=== PATIENT | male | born 2000 | race Hispanic/Latino ===

== ENCOUNTER 2022-04-02 08:29 | Day surgery (SDC) | payer OTHER ==
[2022-03-31 12:07] LABS: BASOPHILS % (AUTO) 0.4 % (0.0-5.0); EOSINOPHILS % (AUTO) 1.4 % (0.0-8.0); HEMATOCRIT 44.3 % (42-54); LYMPHOCYTES % (AUTO) 31.4 % (21.0-51.0); MEAN CORPUSCULAR HEMOGLOBIN 32.4 pg (27.0-33.0); MEAN CORPUSCULAR HGB CONC 35.2 g/dL (32.0-36.0); MEAN CORPUSCULAR VOLUME 92.1 fL (79-99); MONOCYTES % (AUTO) 9.6 % (3.0-13.0); NEUTROPHILS % (AUTO) 56.6 % (40.0-77.0); PLATELET COUNT (AUTO) 299 K/uL (130-400); RED BLOOD CELL COUNT(AUTO) 4.81 MIL/uL (4.50-6.20); RED CELL DISTRIBUTION WIDTH 12.6 % (11.0-15.5)
[2022-03-31 12:29] LABS: CREATININE 0.9 mg/dL (0.5-1.5); POTASSIUM 4.1 mmol/L (3.5-5.1)
[2022-04-01 09:37] VITALS: BP 153/80
[~2022-04-02] VITALS: Ht 167.6 cm; Wt 120.5 kg
[2022-04-02] VITALS (20 sets, daily range): BP systolic 130–147; BP diastolic 67–96
[2022-04-02] MEDS ORDERED: CEFAZOLIN SODIUM 1 GM VIAL ONE ×2 (09:23→12:16)
[2022-04-02] MEDS ORDERED: LACTATED RINGERS 1000ML 1,000 ML IV ONE (09:24)
[2022-04-02] MEDS ORDERED: BUPIVACAINE/PF 0.25% 30ML VIAL IJ ONE (11:15)
[2022-04-02] MEDS ORDERED: MIDAZOLAM HCL 1 MG/ML 2ML VIAL ONE (11:23)
[2022-04-02] MEDS ORDERED: PROPOFOL 10 MG/ML 20ML VIAL IV ONE (11:23)
[2022-04-02] MEDS ORDERED: GLYCOPYRROLATE 1 MG/5 ML SYRINGE ONE (11:23)
[2022-04-02] MEDS ORDERED: ROCURONIUM 10MG/1ML SYR 10 MG/ML ML ONE ×2 (11:24→12:38)
[2022-04-02] MEDS ORDERED: FENTANYL CITRATE PF 50 MCG/1 ML 2ML VIAL ONE ×3 (11:24→14:33)
[2022-04-02] MEDS ORDERED: LIDOCAINE PF 100MG/5ML (2%) SYRINGE 5ML ONE (11:24)
[2022-04-02] MEDS ORDERED: ROPIVACAINE 0.5% 5MG/ML 30ML IJ ONE (12:47)
[2022-04-02] MEDS ORDERED: FAMOTIDINE 20MG VIAL IV ONE (12:47)
[2022-04-02] MEDS ORDERED: NEOSTIGMINE 5MG/5ML SYR IV ONE (13:36)
[2022-04-02] MEDS ORDERED: MEPERIDINE-PF 25 MG/ML SYG ONE ×2 (13:41→14:18)
[2022-04-02] MEDS ORDERED: HYDR-4060 PO (14:34)
[2022-04-02] MEDS ORDERED: CEPH500B PO (14:34)
[2022-04-02] MEDS ORDERED: IBUP-2077 PO (14:34)
[2022-04-02] MEDS ORDERED: ONDANSETRON 4MG INJ ONE (14:42)
[2022-04-02] MEDS ORDERED: METOCLOPRAMIDE 10 MG/2 ML VIAL ONE (15:03)
== END 2022-04-02 17:15 | disposition home or self-care (01) ==
LOC: DAH 08:29
PROVIDERS: ATTEND Orthopaedic Surgery
DX: S83.511A Sprain of anterior cruciate ligament of right knee, initial encounter (principal); S83.231A Complex tear of medial meniscus, current injury, right knee, initial encounter; M17.11 Unilateral primary osteoarthritis, right knee; M94.261 Chondromalacia, right knee; G89.29 Other chronic pain; E66.9 Obesity, unspecified; Z79.01 Long term (current) use of anticoagulants; Z79.899 Other long term (current) drug therapy; Z98.890 Other specified postprocedural states; X50.1XXA Overexertion from prolonged static or awkward postures, initial encounter; Y93.67 Activity, basketball; Y92.89 Other specified places as the place of occurrence of the external cause
CPT/HCPCS: 80048; 85025; 87426; 36415; 29888; 64447; 29881; A4663; J7030; A4649 ×5; J7120; J3490 ×3; J3010 ×3; J0690 ×2; J2710; J2001; J2250; J2704; J2405; J2175 ×2; J2765; J2795; A6223; C1776 ×2; A4930 ×2; C1713; C1762; A5120; A4215; A4223; A4222; A4221; A6450

== ENCOUNTER 2022-09-05 10:04 | Emergency (ER) | payer OTHER ==
[~2022-09-05] VITALS: Ht 167.6 cm; Wt 112.5 kg
[~2022-09-05 10:04] MED LIST: CEPH500B PO; HYDR-4060 PO; IBUP-2077 PO
[2022-09-05] MEDS ORDERED: MAGIC240 MM (12:58)
[2022-09-05] MEDS ORDERED: NYSTATIN 100000 UNIT/ML 5ML UDCUP PO SCH (13:00)
[2022-09-05] MEDS ORDERED: DiphenhydrAMINE HCL 25 MG/10 ML ELIXIR UDCUP PO ONE (13:00)
[2022-09-05] MEDS ORDERED: LIDOCAINE HCL 2% VISCOUS 15 ML UDCUP PO ONE (13:00)
[2022-09-05] MEDS ORDERED: MAG/ALUM/SIMETH 30 ML UDCUP PO ONE (13:00)
[2022-09-05 13:35] VITALS: BP 153/100
== END 2022-09-05 13:36 | disposition home or self-care (01) ==
LOC: EDH 10:04
DX: B37.0 Candidal stomatitis (principal); Z79.1 Long term (current) use of non-steroidal anti-inflammatories (NSAID); Z79.899 Other long term (current) drug therapy

== ENCOUNTER 2023-03-11 00:35 | Emergency (ER) | payer OTHER ==
[~2023-03-11] VITALS: Ht 167.6 cm; Wt 123.4 kg
[~2023-03-11 00:35] MED LIST changes: +MAGIC240 MM
[2023-03-11] MEDS ORDERED: LIDOCAINE HCL 1% 20 ML VIAL INJ SCH (01:30)
[2023-03-11] MEDS ORDERED: TETANUS/DIPHTHERIA TOXOID [ADULT] 0.5 ML VIAL IM ONE (01:30)
[2023-03-11] MEDS ORDERED: IBUPROFEN 800 MG TAB PO ONE (01:30)
[2023-03-11] MEDS ORDERED: CEPH500B PO (02:44)
[2023-03-11] MEDS ORDERED: IBUP-1493 PO (02:44)
[2023-03-11 03:29] VITALS: BP 132/5; PULSE 82; RESP 20
== END 2023-03-11 03:38 | disposition home or self-care (01) ==
LOC: EDH 00:35
DX: S66.812A Strain of other specified muscles, fascia and tendons at wrist and hand level, left hand, initial encounter (principal); Z79.899 Other long term (current) drug therapy; Z98.890 Other specified postprocedural states; X58.XXXA Exposure to other specified factors, initial encounter; Y93.89 Activity, other specified; Y92.89 Other specified places as the place of occurrence of the external cause; Y99.8 Other external cause status
CPT/HCPCS: 12001; 73130; 90471; 90714